=== PATIENT | female | born 1955 | race Caucasian/White ===

== ENCOUNTER 2019-06-30 12:53 | Emergency (ER) | payer MEDICARE, OTHER ==
[~2019-06-30] VITALS: Ht 147.3 cm; Wt 75.0 kg
[~2019-06-30 12:53] MED LIST: AMOX/K CLAV875 M1 PO; AMOXICILLIN/CL875 MG OR; AMOXICILLIN875 MG OR; AUGMENTIN875TAB PO; CHERATUSSIN OR; CIPROFLOXACN500 MG PO; CLARITIN10 M1 PO; MEDDOSEPAK OR; MEDDOSEPAK PO; MULT1 OR; POLYTRIM OU; TESSALON PER100 MG PO; ZYRTEC-D AL1 OR; [UNRECOGNIZED DRUG - OTHER] TOP
[2019-06-30 13:44] LABS: HEMATOCRIT 37.7 % (37.0-47.0); HEMOGLOBIN 12.4 g/dl (12.0-16.0); IMMATURE GRANULOCYTES 0.4 % (0.0-5.0); MEAN CELL VOLUME 91.5 fL CALC (80.0-100.0); MEAN CORPUSCULAR HGB 30.1 pG CALC (26.0-32.0); MEAN CORPUSCULAR HGB CONC 32.9 g/L CALC (32.0-36.0); NEUT# 3.72 thou/uL (2.00-7.15); RED BLOOD COUNT 4.12 mill/uL (4.20-5.60); RED CELL DISTRI WIDTH 14.6 % (11.5-15.5)
[2019-06-30 13:58] LABS: ANION GAP 13 (6-22 (CALC)); BUN 17 mg/dL (8-23); BUN/CREATININE RATIO 26 (12-20 (CALC)); CARBON DIOXIDE 25 mmol/l (22-30); CHLORIDE 109 mmol/l (95-108); CREATININE 0.7 mg/dL (0.5-1.0); GFR > 60 ML/MIN (>=60 (CALC)); GFR FOR AFR.AMER. > 60 ML/MIN (>=60 (CALC)); POTASSIUM 4.4 mmol/l (3.5-5.1); SODIUM 143 mmol/l (137-146)
[2019-06-30] MEDS ORDERED: MECLIZINE25 MG PO (14:09)
[2019-06-30 14:11] VITALS: BP 140/82
== END 2019-06-30 14:35 | disposition home or self-care (01) ==
LOC: ED 12:53
PROVIDERS: Family Medicine
DX: R42 Dizziness and giddiness (principal)